=== PATIENT | male | born 1995 | race African-American/Black ===

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

== ENCOUNTER 2017-02-16 15:54 | Emergency (ER) | payer OTHER ==
[2017-02-16 16:15] VITALS: BP 104/28; PULSE 67; TEMP 98.6; BMI 17.0
--- NOTE | 2017-02-16 17:16 | PDOC ---
History of Present Illness - General Chief Complaint: Back Pain Stated Complaint: LT SIDE PAIN Time Seen by Provider: 02/16/17 16:58 History Source: Patient Exam Limitations: No Limitations - History of Present Illness Initial Comments: 02/16/17 17:16 This is a 21-year-old man without significant past medical history presents to the emergency department with 1 month of left lower back pain and 1 week of left -sided chest pain. Patient reports his back pain started while mopping up his house approximately one month ago. He states that the pain worsens with twisting motion of the spine. Chest pain started approximately one week ago and is on the left side and nonreproducible. Patient denies any shortness of breath, nausea, vomiting, dizziness, diaphoresis, fevers, chills. The patient is worried about his chest pain given that his father recently had an DE. He describes his chest pain as sharp nonradiating 6 out of 10. The pain did not get better after taking mewn-tbm-cfiwaze Tylenol. Timing/Duration: getting worse (over 1 month) Severity: mild Past History - Past Medical History Allergies/Adverse Reactions: Allergies Allergy/AdvReac Type Severity Reaction Status Date / Time Penicillins Allergy Verified 02/16/17 16:12 Home Medications: Ambulatory Orders NK [No Known Home Medication] 06/05/16 Other medical history: DENIES. - Suicide/Smoking/Psychosocial Hx Smoking History: Never smoked *Physical Exam - Vital Signs Last Vital Signs Temp Pulse Resp BP Pulse Ox 98.6 F 67 19 104/28 100 02/16/17 16:12 02/16/17 16:12 02/16/17 16:12 02/16/17 16:12 02/16/17 16:12 Heart Score/ECG Review - History History: Slightly suspicious - Electrocardiogram EKG: Normal - Age Age: </= 45 - Risk Factors Risk Factors Heart Score: Yes Positive family hx of cardiac disease Based on the list above the patient has:: 1-2 risk factors - ECG Intrepretation Rhythm: Regular Rhythm - [place]: Normal - ECG Impressions Normal ECG: Yes ED Treatment Course - RADIOLOGY Radiology Studies Ordered: Category Date Time Status CHEST PA & LAT [RAD] Stat Radiology 02/16/17 17:07 Ordered Medical Decision Making - Medical Decision Making 02/16/17 17:10 A/P: This is a 21-year-old man without significant past medical history presents to the emergency department with 1 month of left lower back pain and 1 week of left -sided chest pain. Patient reports his back pain started while mopping up his house approximately one month ago. He states that the pain worsens with twisting motion of the spine. Chest pain started approximately one week ago and is on the left side and nonreproducible. Patient denies any shortness of breath, nausea, vomiting, dizziness, diaphoresis, fevers, chills. The patient is worried about his chest pain given that his father recently had an DE. He describes his chest pain as sharp nonradiating 6 out of 10. The pain did not get better after taking rxge-aeo-ansescx Tylenol. Patient is alert and oriented 3 and in no apparent distress. Oropharynx is clear without erythema or exudates. Neck supple with trachea midline. Chest nontender to palpation. Respirations even and unlabored. Lungs clear to auscultation bilaterally. Regular rate and rhythm. S1 and S2 present without murmur rub or gallop. Normoactive bowel sounds. Abdomen soft nontender nondistended. Moves all extremities for with strength 5 out of 5 in all extremities. Cranial nerves II through XII intact. Pupils equally round reactive to light and accommodation. Differential diagnosis for chest pain-pneumonia, GERD, DE, [place] skeletal pain, hiatal hernia Diagnosis of lower back pain likely from muscle strain. I will obtain an EKG, chest x-ray, and his EKG is normal I will medicate with 500 mg of Naprosyn oral. 02/16/17 18:10 Wet read of chest x-ray PA and lateral by me- lungs well aerated. No sign of pneumothorax. No consolidations noted. Osseous structures that are visualized are intact without fracture. No acute process noted. Given normal chest x-ray and EKG, there is low probability of acute pulmonary or cardiac issue at this time. The patient was given a copy of his EKG to bring to his primary doctor for follow-up. I discussed all findings with the patient' s and he agrees with plan to discharge and understands that he should follow-up with his primary doctor for further evaluation of these issues. *DC/Admit/Observation/Transfer Diagnosis at time of Disposition: Atypical chest pain Back pain Qualifiers: Back pain location: low back pain Chronicity: chronic Back pain laterality: left Sciatica presence: without sciatica Qualified Code(s): M54.5 - Low back pain; M54.5 - Low back pain; G89.29 - Other chronic pain; G89.29 - Other chronic pain - Discharge Dispostion Disposition: HOME Condition at time of disposition: Stable Admit: No - Referrals Referrals: aJsper Almaguer MD [Staff Physician] - - Patient Instructions Additional Instructions: Your EKG and chest x-ray are normal. You have been given a copy of her EKG to bring to her primary doctor for further evaluation and to have a baseline EKG in your file. On his low likelihood that you having an acute cardiac or pulmonary issue at this time, it is recommended that she get further follow-up to identify the cause of the pain Urex praising in her chest. The lower back pain could best be treated with Naprosyn. Please take as directed by manufacturers instructions for pain. Return to the emergency room for any shortness of breath, sweating, chest pain, nausea, vomiting, dizziness, any other concerns. Thank you very much for choosing us to provide your emergent healthcare needs.
[2017-02-16] MEDS ORDERED: NAPROXEN 500 MG TABLET (FP) PO ONE (17:45)
[2017-02-16] MEDS ORDERED: NAPROXEN 500 MG TABLET (FP) ONE (17:54)
--- NOTE | 2017-02-18 14:51 | EKG ---
Test Reason : Blood Pressure : / mmHG Vent. Rate : 061 BPM Atrial Rate : 061 BPM P-R Int : 134 ms QRS Dur : 092 ms QT Int : 350 ms P-R-T Axes : 068 071 059 degrees QTc Int : 352 ms NORMAL SINUS RHYTHM NORMAL ECG NO PREVIOUS ECGS AVAILABLE Confirmed by DA GUERRERO MD ([id number]) on 02/18/2017 2:50:46 PM Referred By: MANNY Confirmed By:DA GUERRERO MD
== END 2017-02-16 18:19 | disposition home or self-care (01) ==
LOC: JERFT 15:54
DX: R07.89 Other chest pain (principal); M54.5 Low back pain; G89.29 Other chronic pain
CPT/HCPCS: 71020-TC; 93005; 93010; 99281-25

== ENCOUNTER 2017-08-25 21:57 | Emergency (ER) | payer OTHER ==
[2017-08-25] MEDS ORDERED: DEXAMETHASONE SOD PHOSPHATE 10 MG/1 ML VIAL ONE (22:04)
[2017-08-25] MEDS ORDERED: ONDANSETRON 4 MG/2 ML VIAL ONE (22:05)
--- NOTE | 2017-08-25 22:15 | PDOC ---
History of Present Illness - General Chief Complaint: Shortness of Breath Stated Complaint: penecillin/allergic reaction Time Seen by Provider: 08/25/17 22:04 - History of Present Illness Initial Comments: 21 year old male with PMH of seasonal allergies presenting with shortness of breath, nausea, and vomiting for the past day. Patient states that he was feeling slightly SOB last night before going to bed and then had a a few episodes of NBNB vomiting starting at 2 AM> After vomiting he noticed throat pain and felt that his voice was worsening. He called his mom to get him an darby around 10 AM in the morning and she states that he looked weak but did not appear ot have any respiratory compromise. He gradually worsened throughout the day and eventually called EMS who states he appeared well overall but complained of his throat swelling. They heard some right lung wheezing. They gave 10 of decadron and a few doses of nebs with good relief of symptoms. His mother has history of asthma. Denies fevers chills, chest pain, or other symptoms. 08/25/17 22:15 Past History - Past Medical History Allergies/Adverse Reactions: Allergies Allergy/AdvReac Type Severity Reaction Status Date / Time Penicillins Allergy Verified 08/25/17 22:16 Home Medications: Ambulatory Orders Albuterol Sulfate Inhaler - [Ventolin HFA Inhaler -] 1 - 2 inh PO Q4H PRN #1 inhaler 08/26/17 - Suicide/Smoking/Psychosocial Hx Smoking History: Never smoked Review of Systems - Review of Systems Constitutional: No: Chills, Diaphoresis, Fever, Loss of Appetite HEENTM: No: Eye Pain, Blurred Vision Respiratory: Yes: Cough, Shortness of Breath. No: Orthopnea, Wheezing, Productive cough Cardiac (ROS): No: Chest Pain, Edema, Irregular Heart Rate, Syncope ABD/GI: Yes: Nausea, Vomiting : No: Dysuria, Discharge, Frequency Musculoskeletal: No: Back Pain, Joint Pain, Joint Swelling Integumentary: No: Bruising, Lesions, Lumps, Pallor, Pruritus Neurological: No: Headache, Numbness, Paresthesia Psychiatric: Yes: Anxiety, Depression Endocrine: No: Excessive Sweating Hematologic/Lymphatic: No: Anemia, Easy Bleeding *Physical Exam - Physical Exam General Appearance: Yes: Nourished, Appropriately Dressed. No: Apparent Distress HEENT: positive: EOMI, KASSIDY, Normal ENT Inspection. negative: Normal Voice ( Raspy quality voice) Neck: positive: Trachea midline, Normal Thyroid, Supple. negative: Tender, Rigid Respiratory/Chest: positive: Lungs Clear, Normal Breath Sounds, Other (Not in acute respiratory distress but complainign of throat tightness and pain. ). negative: Chest Tender, Respiratory Distress Cardiovascular: positive: Regular Rhythm, Regular Rate Gastrointestinal/Abdominal: positive: Normal Bowel Sounds, Flat, Soft. negative : Tender Musculoskeletal: positive: Normal Inspection. negative: CVA Tenderness Extremity: positive: Normal Capillary Refill, Normal Inspection, Normal Range of Motion. negative: Tender Integumentary: positive: Normal Color, Dry, Warm Neurologic: positive: Fully Oriented, Alert, Normal Mood/Affect, Normal Response , Motor Strength 08/24 ED Treatment Course - LABORATORY CBC & Chemistry Diagram: 08/25/17 21:43 08/25/17 21:43 Medical Decision Making - Medical Decision Making 21 year old male with history of allergies and family history of asthma presenting with throat pain and subjective constriction that gradually worsened over the past day. Symptoms resolved with 2-3 duo nebs, decadron 10, and viscous lidocaine. CXR clear, flu negative and patient's symptoms resolved. He has history of severe depressive episodes in the past and admits he has been going through relationship stressors recently. His airway was patent during his entire stay and his visual throat exam did not demonstrate swelling or other pathology. He originally told the EMS service that he couldn't' move his legs but he was able to walk without difficulty in our ED after treatment. Will discharge the patient with a home inhaler and PCP follow up as this was most likely an episode of asthma. 08/26/17 00:42 *DC/Admit/Observation/Transfer Diagnosis at time of Disposition: Asthma attack Qualifiers: Asthma severity: moderate Asthma persistence: persistent Qualified Code(s): J45.41 - Moderate persistent asthma with (acute) exacerbation - Discharge Dispostion Disposition: HOME Condition at time of disposition: Improved Admit: Yes - Prescriptions Prescriptions: Albuterol Sulfate Inhaler - [Ventolin HFA Inhaler -] 1 - 2 inh PO Q4H PRN #1 inhaler PRN Reason: Asthma - Referrals [place] [facility] [place] [facility] [place]] - Patient Instructions Printed Discharge Instructions: DI for Asthma -- Adult Additional Instructions: You likely had an asthma attack as your lab, cxr, and flu swab were all normal. Please use your inhaler as needed. Please make an appointment at the [facility] clinic within the next few days. Please return to the ED for new or worsening symptoms. - Post Discharge Activity
--- NOTE | 2017-08-25 22:20 | PDOC ---
Attending Attestation - Resident Resident Name: Benjamin Molinacamillelisa - ED Attending Attestation I have performed the following: I have examined & evaluated the patient, The case was reviewed & discussed with the resident, I agree w/resident's findings & plan, Exceptions are as noted - HPI HPI: 08/25/17 22:19 21 yo male BIBA for severer seasonal allergies,wheezing. He received decadron IV, - Physicial Exam PE: 08/25/17 22:24 alert and conversant 21 yo male head ncat throat -sl elongated uvula,no deviation neck supple lungs cta b/l cvs [id number] abd flat,nontender ext no e/c/c neuro axox3,moving all extremities - Medical Decision Making 08/26/17 01:28 lungs were clear after nebs no hives no uvular deviation labs unremarkable IMP seasonal allergies w reactive airway
[2017-08-25] MEDS ORDERED: SODIUM CHLORIDE 0.9% 500 ML INFUS.BAG IV ONE (22:26)
[2017-08-25 22:27] VITALS: BP 110/83; PULSE 116; TEMP 98.3; BMI 19.4
[2017-08-25 22:44] LABS: BASO % 0.4 % (0-2.0); EOS % 2.6 % (0-4.5); HEMATOCRIT 43.5 % (35.4-49); HEMOGLOBIN 15.4 GM/dL (11.7-16.9); LYMPH % 8.4 % (8-40); MCH 32.2 pg (25.7-33.7); MCHC 35.3 g/dl (32.0-35.9); MEAN CELL VOLUME 91.3 fl (80-96); MEAN PLT VOLUME 7.6 fl (7.5-11.1); MONO % 3.2 % (3.8-10.2); NEUT % 85.4 % (42.8-82.8); PLATELET COUNT 179 K/MM3 (134-434); RBC 4.76 M/mm3 (4.00-5.60); RDW 13.2 % (11.9-15.9); WHITE BLOOD COUNT 8.7 K/mm3 (4.0-10.0)
[2017-08-25 23:08] LABS: ANION GAP 5 (8-16); BILIRUBIN,DIRECT 0.2 mg/dL (0.0-0.2); BLOOD UREA NITROGEN 8 mg/dL (7-18); CALCIUM 7.8 mg/dL (8.5-10.1); CHLORIDE 110 mmol/L (98-107); CO2 27 mmol/L (21-32); GLUCOSE,RANDOM 95 mg/dL (74-106); MAGNESIUM 1.9 mg/dL (1.8-2.4); PHOSPHOROUS 2.1 mg/dL (2.5-4.9); POTASSIUM 3.6 mmol/L (3.5-5.1); SGOT/AST 9 U/L (15-37); SGPT/ALT 10 U/L (12-78); SODIUM 142 mmol/L (136-145)
[2017-08-25 23:09] LABS: ALK PHOS 62 U/L (45-117); BILIRUBIN,TOTAL 0.6 mg/dL (0.2-1.0); TOT PROT 6.8 g/dl (6.4-8.2)
[2017-08-25] MEDS ORDERED: ALBUTEROL SO4 2.5/IPRATROPIUM 0.5 INH SOL 3 ML VIAL.NEB. NEB ONE ×2 (23:24→23:34)
[2017-08-25] MEDS ORDERED: LIDOCAINE VISCOUS 2% ORAL/TOP 100 ML BOTTLE MM ONE (23:24)
[2017-08-25] MEDS ORDERED: LIDOCAINE VISCOUS 2% ORAL/TOP 20 ML UNIT-DOSE CUP ONE (23:34)
--- NOTE | 2017-08-26 01:00 | PDOC ---
*Physical Exam - Vital Signs Last Vital Signs Temp Pulse Resp BP Pulse Ox 98.3 F 116 H 24 110/83 96 08/25/17 22:13 08/25/17 22:13 08/25/17 22:13 08/25/17 22:13 08/25/17 22:13 ED Treatment Course - LABORATORY CBC & Chemistry Diagram: 08/25/17 21:43 08/25/17 21:43 - ADDITIONAL ORDERS Additional order review: Laboratory Results 08/25/17 08/25/17 21:43 21:43 Sodium 142 Potassium 3.6 Chloride 110 H Carbon Dioxide 27 Anion Gap 5 L BUN 8 Creatinine 1.0 Creat Clearance w eGFR > 60 Random Glucose 95 Calcium 7.8 L Phosphorus 2.1 L Magnesium 1.9 Total Bilirubin 0.6 Direct Bilirubin 0.2 AST 9 L ALT 10 L Alkaline Phosphatase 62 Total Protein 6.8 Albumin 4.0 Total Amylase 102 Lipase 110 08/25/17 23:30 Influenza Types A,B Antigen ([facility]) - Final Nasopharyngeal Swab - Final 08/25/17 21:43 RBC 4.76 MCV 91.3 MCHC 35.3 RDW 13.2 MPV 7.6 Neutrophils % 85.4 H Lymphocytes % 8.4 Monocytes % 3.2 L Eosinophils % 2.6 Basophils % 0.4 - RADIOLOGY Radiology Studies Ordered: Category Date Time Status CXRPORT [CHEST X-RAY PORTABLE*] [RAD] Stat Radiology 08/25/17 22:17 Taken - Medications Given in the ED: ED Medications Discontinued Medications Generic Name Dose Route Start Last Admin Trade Name Freq PRN Reason Stop Dose Admin Albuterol/Ipratropium 1 amp 08/25/17 23:24 08/26/17 00:20 Duoneb - NEB 08/25/17 23:25 1 amp ONCE ONE Administration Lidocaine HCl 15 ml 08/25/17 23:24 08/26/17 00:20 Xylocaine 2% Viscous MM 08/25/17 23:25 15 ml ONCE ONE Administration Sodium Chloride 1,000 ml 08/25/17 22:26 08/25/17 22:30 Normal Saline - IV 08/25/17 22:27 1,000 ml ONCE ONE Administration Medical Decision Making - Medical Decision Making 08/26/17 00:59 Patient accidentally placed for admission under previous note. Will be discharged. *DC/Admit/Observation/Transfer Diagnosis at time of Disposition: Asthma attack Qualifiers: Asthma severity: moderate Asthma persistence: persistent Qualified Code(s): J45.41 - Moderate persistent asthma with (acute) exacerbation - Discharge Dispostion Disposition: HOME Condition at time of disposition: Improved Admit: No - Prescriptions Prescriptions: Albuterol Sulfate Inhaler - [Ventolin HFA Inhaler -] 1 - 2 inh PO Q4H PRN #1 inhaler PRN Reason: Asthma - Referrals [place] [facility] [place] [facility] [place] Group] - Patient Instructions Printed Discharge Instructions: DI for Asthma -- Adult Additional Instructions: You likely had an asthma attack as your lab, cxr, and flu swab were all normal. Please use your inhaler as needed. Please make an appointment at the [facility] within the next few days. Please return to the ED for new or worsening symptoms. - Post Discharge Activity
== END 2017-08-26 01:16 | disposition home or self-care (01) ==
LOC: JER 21:57
PROC: 3E0F7GC Introduction of Other Therapeutic Substance into Respiratory Tract, Via Natural or Artificial Opening (ICD-10-PCS; principal; 2017-08-25)
PROC: 3E0337Z Introduction of Electrolytic and Water Balance Substance into Peripheral Vein, Percutaneous Approach (ICD-10-PCS; 2017-08-25)
DX: J45.41 Moderate persistent asthma with (acute) exacerbation (principal)
CPT/HCPCS: 36415; 71045-TC-FY; 80053; 82150; 82248; 83690; 83735; 84100; 85025; 87804; 99281-25; J7620